=== PATIENT | female | born 1960 | race Caucasian/White ===

== ENCOUNTER 2018-07-05 12:59 | Emergency (ER) | payer SELFPAY ==
[~2018-07-05] VITALS: Ht 165.1 cm; Wt 81.8 kg
[2018-07-05] MEDS ORDERED: METO-558 PO (13:14)
[2018-07-05] MEDS ORDERED: METF-960 PO (13:14)
[2018-07-05] MEDS ORDERED: GABA-529 PO (13:14)
[2018-07-05] MEDS ORDERED: ACETAMINOPHEN 500 MG TABLET PO ONE (15:00)
[2018-07-05] MEDS ORDERED: BACITRACIN 0.9 GM PACKET OINTMENT TP ONE (15:00)
[2018-07-05 16:06] VITALS: BP 141/80
[2018-07-05 16:14] LABS: GLUCOSE,POINT OF CARE 222 MG/DL (70-110)
== END 2018-07-05 16:25 | disposition home or self-care (01) ==
LOC: EMS 13:04
DX: S80.01XA Contusion of right knee, initial encounter (principal); F17.210 Nicotine dependence, cigarettes, uncomplicated; E11.9 Type 2 diabetes mellitus without complications; Z79.84 Long term (current) use of oral hypoglycemic drugs; W01.0XXA Fall on same level from slipping, tripping and stumbling without subsequent striking against object, initial encounter; Y93.89 Activity, other specified; Y92.89 Other specified places as the place of occurrence of the external cause; Y99.8 Other external cause status
CPT/HCPCS: 99406